=== PATIENT | male | born 1970 | race Caucasian/White ===

== ENCOUNTER 2025-01-16 11:22 | Emergency (ER) | payer BC, SELFPAY ==
[2025-01-16 11:30] VITALS: BP 151/81; PULSE 85; RESP 20; TEMP 36.7; O2SAT 95
--- NOTE | 2025-01-16 11:31 | ED.URI ---
HPI - URI/Sore Throat General Chief Complaint: Upper Respiratory Infection Stated Complaint: Sinus Time Seen by Provider: 01/16/25 11:30 Source: patient, RN notes reviewed and old records reviewed Mode of arrival: ambulatory Limitations: no limitations History of Present Illness HPI Narrative: 54 year old male accompanied by family member presents to express care with complaints of being ill for over 1 week duration. Patient reports that he did a telehealth visit last Saturday and was told to take Flonase and OTC medications for his symptoms. Patient reports that his cough has become worse this week with expectoration of yellow mucous and now he feels short of breath and thinks he needs an inhaler and antibiotic. Patient report no fevers chills or sweats or any body aches. Patient reports history of smoking for many years reports that he has not smoked for a week but has used nicotine pouches. MD elicited complaint: cough, rhinorrhea, nasal congestion and other (sinus pressure and some shortness of breath) Pertinent past history: other (smoker) Onset (ago): week(s) (initial ill symptoms over 1 week duration) Able to tolerate fluids by mouth: Yes Treatments prior to arrival: cold medicine and other (flonase) Related Data Home Medications ?Medication ?Instructions ?Recorded ?Confirmed ?Last Taken ?Type hydrocodone 7.5 mg-acetaminophen tablet 01/16/25 Unknown History 325 mg tablet Allergies Allergy/AdvReac Type Severity Reaction Status Date / Time No Known Allergies Allergy Mild Verified 01/16/25 11:32 Review of Systems Review of Systems: CONSTITUTIONAL: reports malaise, no chills, sweats, or fever. EYES: Denies visual changes, redness, or discharge. ENT: Reports rhinorrhea, congestion,no sinus pain, no otalgia and no sore throat. CARDIOVASCULAR: Denies chest pain, palpitations, or edema. RESPIRATORY: Reports productive cough with expectoration of yellow mucous with some dyspnea. GASTROINTESTINAL: Denies abdominal pain, nausea, vomiting, diarrhea SKIN: Denies rash or itching. MUSCULOSKELETAL: Denies myalgia. NEUROLOGIC: Denies headache. All systems reviewed & are unremarkable except as noted in HPI and below PMFSH Past Medical History Medical History (Updated 01/16/25 @ 13:16 by Divina Zaidi NP) GERD (gastroesophageal reflux disease) Cellulitis of right elbow Pneumonia Ankle fracture, right Surgical History Surgical History (Updated 01/16/25 @ 13:16 by Divina Zaidi NP) H/O hand surgery right History of appendectomy Social History Social History (Updated 01/16/25 @ 13:14 by Divina Zaidi NP) Smoking status: Current every day smoker Tobacco type: cigarettes Additional smoking assessment comments: has not smoked for one week duration using nicotine pouches Alcohol intake: current Alcohol use details: rare social Substance use: current Substance use type: opiates Last use: on opiates for chronic back and neck pain Living arrangements: with family Gender identity (if verbalized by the patient): Male Comments At time of signature, agree with nursing past medical, surgical, social and family history. There is no relevant family history pertinent to the presenting complaint Exam Narrative: GENERAL: Well-appearing, well-nourished, and in no acute distress. HEAD: Normocephalic EYES: PERRLA, conjunctivae clear ENT: Nares clear, turbinates edematous and erythematous, clear discharge. Mucous membranes moist. TM pearly kerr with dull light reflex bilaterally; no tragal tenderness. Oropharynx erythematous without lesions. Tonsils not enlarged and without exudate, no drooling, no hoarseness, no trismus, uvula midline.post nasal drainage NECK: Supple. No lymphadenopathy CHEST: scattered wheezing on auscultation, breath sounds equal. positive for wheezing, no rhonchi, rales, or stridor. No respiratory distress, speaks in full sentences.productive cough yellow mucous, SAO2 95% on room air HEART: Regular rate and rhythm. No murmur heard. SKIN: Warm, dry, no rash. NEURO: Alert and oriented x3. PSYCH: Normal mood and affect Course Course Emergency Course: Patient is aware of diagnosis, understands and agrees to treatment plan.? Anticipatory guidance given.? Patient agrees to follow-up as directed and is aware of reasons to seek care at the emergency department. Portions of this record may have been created with voice recognition software Level of Care: Express Care Visit Vital Signs Vital signs: Vital Signs Temperature 36.7 C 01/16/25 11:30 Pulse Rate 85 01/16/25 11:30 Respiratory Rate 20 01/16/25 11:30 Blood Pressure 151/81 H 01/16/25 11:30 Pulse Oximetry 95 01/16/25 11:30 Oxygen Delivery Room Air 01/16/25 11:30 Temperature 36.7 C 01/16/25 11:30 Pulse Rate 85 01/16/25 11:30 Respiratory Rate 20 01/16/25 11:30 Blood Pressure 151/81 H 01/16/25 11:30 Pulse Oximetry 95 01/16/25 11:30 Oxygen Delivery Room Air 01/16/25 11:30 Reviewed MDM - URI/Sore Throat MDM Narrative Medical decision making narrative: Differential diagnosis considered: Stephens virus, strep pharyngitis, allergic rhinitis, upper respiratory tract infection, sinusitis, rhinosinusitis, nasopharyngitis. viral pharyngitis, otitis media, otitis externa, pneumonia, bronchitis, viral cough syndrome, viral syndrome, and influenza.? Exam findings show no acute concerns or changes; patient is non-toxic appearing and is in no distress.? Patient is appropriate for outpatient treatment and follow-up. Differential Diagnosis Differential diagnosis: Likely upper respiratory infection, sinusitis, viral infection, bronchitis and pharyngitis Medical Records Attestation: I reviewed the patient's medical records. Lab Data Attestation: I reviewed the patient's lab results. Critical Care Time Critical Care Time Critical Care Time: No Discharge Plan Discharge Clinical Impression: Bronchitis, Sinus congestion Patient Disposition: Home Condition: Stable Instructions: Acute Bronchitis (ED), Rhinosinusitis (ED) Additional Instructions: Increase fluids especially juices and water [id number] cough and cold medicine of your choice for your symptoms Zyrtec Claritin or Farideh daily Continue nasal spray as you have been using Continue your inhaler/nebulizer as ordered Steroids as directed--take with food heat to the face 20-30 minutes 4-6 times a day for pain Salt water gargles, throat lozenges or throat sprays as desired Antibiotic as directed--finished the medication Tylenol or ibuprofen per package instructions pain or fever If your symptoms persist, change or worsen significantly before you can contact your personal physician then please, without delay, go to the emergency department for further evaluation. Follow-up with PCP in 7-10 days or sooner if needed Follow up with PCP soon in regards to your blood pressure which is elevated above threshold for referral. Blood pressure above 120/80 may indicate pre-hypertension. Patient Language: [place] Prescriptions: New azithromycin 250 mg tablet See Rx Instructions .ROUTE .COMPLEX Qty: 6 0RF Rx Instructions: For 250 mg dose pack: take 500 mg today (day 1), then 250 mg for 4 days (days 2-5) prednisone 20 mg tablet 40 mg PO DAILY Qty: 10 0RF Rx Instructions: take with food albuterol sulfate [Ventolin HFA] 90 mcg/actuation HFA aerosol inhaler 2 puff inhalation QID PRN (Reason: shortness of breath or wheezing) Qty: 6.7 0RF No Action hydrocodone-acetaminophen 7.5-325 mg tablet Follow-up/Referrals: Kenny,MD Crews ([place]) [Primary Care Provider] Time of Disposition: 11:45 Quality [place] Coma Scale Eyes: Open Verbal: Oriented and Alert Motor: Follows Commands Lai Coma Total Score: 15
== END 2025-01-16 11:52 | disposition home or self-care (01) ==
PROVIDERS: Emergency Provider Registered Nurse; PCP Internal Medicine
DX: J40 Bronchitis, not specified as acute or chronic (principal); J34.89 Other specified disorders of nose and nasal sinuses; F17.290 Nicotine dependence, other tobacco product, uncomplicated; K21.9 Gastro-esophageal reflux disease without esophagitis
CPT/HCPCS: 99213; G0463